=== PATIENT | female | born 1955 | race Caucasian/White ===

== ENCOUNTER 2017-04-22 15:42 | Emergency (ER) | payer OTHER ==
--- NOTE | 2017-04-22 19:47 | ED ORDER SUMMARY ---
..... Patient: HARJINDER DASILVA OrderSheet [facility] VisitID: [id number] [place] [address] 61y, F Registration Date/Time: 04/22/2017 ORDER SHEET Weight: 52.1 kg (stated) Allergies: Erythromycin GENERAL ORDERS: CBC w Diff Urgent (15:59 04/22/2017 Blaine Arshad) (Ack 16:02 RAMAeivan ER Tech1) (16:09 LAbe R.N.) CMP Urgent (15:59 04/22/2017 Blaine Arshad) (Ack 16:02 PWeivan ER Tech1) (16:09 LAbe R.N.) UA-Culture if indicated Urgent (15:59 04/22/2017 Blaine Arshad) (Ack 16:02 RAMAeivan ER Tech1) (16:09 LAbe R.N.) Urine Drug Screen Urgent (15:59 04/22/2017 Blaine Arshad) (Ack 16:02 RAMAeiler ER Tech1) (16:09 LAbe R.N.) Breathalyzer (15:59 04/22/2017 Blaine Arshad) (16:09 LAbe R.N.) Magnesium Urgent (16:32 04/22/2017 Blaine Arshad) (16:37 RAMAeivan ER Tech1) - (Magnesium Oxide 400 mg PO x 1 now) (16:43 04/22/2017 Blaine Arshad) (Cancelled: Physician Order16:54 Blaine Arshad) MEDICATION ORDERS: Potassium Chloride PO 20 meq (NOW) (16:44 04/22/2017 Blaine Arshad) (Ack 16:58 LAbe R.N.) (17:10 LAbe R.N.) - (Magnesium Oxide 400 mg PO x 1 now) (16:54 04/22/2017 Blaine Arshad) (Ack 16:58 LAbe R.N.) (18:38 LAbe R.N.) Ativan PO 0.5 mg (HIGH ALERT MEDICATION, NOW) (19:42 04/22/2017 Blaine Arshad) (Ack 19:43 JQuivey R.N.) (19:46 JQuivey R.N.) Zofran ODT PO 4 mg (NOW) (19:53 04/22/2017 Ellen Limon verbal order read back to Blaine Arshad) (19:53 Ellen Limon) IV FLUIDS: IV NS : initial bolus none -, then 1000 mL/hr for X1 (NOW) (15:58 04/22/2017 Blaine Arshad) (16:10 Jeffrey Gonzalez.) Zofran IV 4 mg (NOW) (15:58 04/22/2017 Blaine Arshad) (16:10 Jeffrey Garcia.N.) Potassium Chloride IV 20 meq/100mL (HIGH ALERT MEDICATION, NOW, Run no faster than 10 mEq/hr) (16:44 04/22/2017 Blaine Arshad) (Ack 16:58 LAbjohn R.N.) (17:08 LAbjohn R.N.) ORDER SHEET NOTES: [Electronically signed by Josselin Connors R.N. (20:49 04/22/2017)] [Electronically signed by Thompson Grace Dr. (21:56 04/22/2017)] [Electronically locked/signed by Josselin Connors R.N. (20:49 04/22/2017)]
--- NOTE | 2017-04-22 19:47 | ED ORDER SUMMARY ---
..... Patient: HARJINDER DASILVA OrderSheet [facility] VisitID: [id number] [place] [address] 61y, F Registration Date/Time: 04/22/2017 ORDER SHEET Weight: 52.1 kg (stated) Allergies: Erythromycin GENERAL ORDERS: CBC w Diff Urgent (15:59 04/22/2017 Blaine Arshad) (Ack 16:02 RAMAeivan ER Tech1) (16:09 LAbe R.N.) CMP Urgent (15:59 04/22/2017 Blaine Arshad) (Ack 16:02 PWeivan ER Tech1) (16:09 LAbe R.N.) UA-Culture if indicated Urgent (15:59 04/22/2017 Blaine Arshad) (Ack 16:02 RAMAeivan ER Tech1) (16:09 LAbe R.N.) Urine Drug Screen Urgent (15:59 04/22/2017 Blaine Arshad) (Ack 16:02 RAMAeiler ER Tech1) (16:09 LAbe R.N.) Breathalyzer (15:59 04/22/2017 Blaine Arshad) (16:09 LAbe R.N.) Magnesium Urgent (16:32 04/22/2017 Blaine Arshad) (16:37 RAMAeivan ER Tech1) - (Magnesium Oxide 400 mg PO x 1 now) (16:43 04/22/2017 Blaine Arshad) (Cancelled: Physician Order16:54 Blaine Arshad) MEDICATION ORDERS: Potassium Chloride PO 20 meq (NOW) (16:44 04/22/2017 Blaine Arshad) (Ack 16:58 LAbe R.N.) (17:10 LAbe R.N.) - (Magnesium Oxide 400 mg PO x 1 now) (16:54 04/22/2017 Blaine Arshad) (Ack 16:58 LAbe R.N.) (18:38 LAbe R.N.) Ativan PO 0.5 mg (HIGH ALERT MEDICATION, NOW) (19:42 04/22/2017 Blaine Arshad) (Ack 19:43 JQuivey R.N.) (19:46 JQuivey R.N.) Zofran ODT PO 4 mg (NOW) (19:53 04/22/2017 Ellen Limon verbal order read back to Blaine Arshad) (19:53 Ellen Limon) IV FLUIDS: IV NS : initial bolus none -, then 1000 mL/hr for X1 (NOW) (15:58 04/22/2017 Blaine Arshad) (16:10 Jeffrey Gonzalez.) Zofran IV 4 mg (NOW) (15:58 04/22/2017 Blaine Arshad) (16:10 eJffrey Garcia.N.) Potassium Chloride IV 20 meq/100mL (HIGH ALERT MEDICATION, NOW, Run no faster than 10 mEq/hr) (16:44 04/22/2017 Blaine Arshad) (Ack 16:58 LAbjohn R.N.) (17:08 LAbjohn R.N.) ORDER SHEET NOTES: [Electronically signed by Josselin Connors R.N. (20:49 04/22/2017)] [Electronically signed by Thompson Grace Dr. (21:56 04/22/2017)] [Electronically locked/signed by Josselin Connors R.N. (20:49 04/22/2017)]
--- NOTE | 2017-04-22 19:47 | ED CLINICAL REPORT ---
Clinical Report - Physicians/Mid Levels [facility] [address] [place] [address] 04/22/2017 15:45 Patient: HARJINDER DASILVA Time Seen: 15:49; initial patient contact. Arrived- By ambulance. Historian- patient. HISTORY OF PRESENT ILLNESS Chief Complaint: INTOXICATED. Wants to stop drinking. Symptoms started today. Substances abused: Alcohol. Last drink just prior to arrival. The patient has had nausea. No vomiting, diarrhea, abdominal pain, tremors or seizure. No agitation, delusions, hallucinations or suicidal thoughts. Not confused or paranoid. Has not been depressed. The symptoms are described as mild. No injuries noted. Similar symptoms previously: Many times. ( Reviewed [place] report, multiple ER visits for EtOH.). Recent medical care: Not recently seen/assessed. REVIEW OF SYSTEMS No headache, dizziness, chest pain or palpitations. All systems otherwise negative, except as recorded above. PAST HISTORY Hypothyroidism. Alcoholism ADDITIONAL SURGERIES: . Knee Surgery. Shoulder Surgery. SOCIAL HISTORY Current every day smoker. Heavy alcohol use. Patient is a longstanding alcoholic. No drug use. ADDITIONAL NOTES The nursing notes have been reviewed. PHYSICAL EXAM Vital Signs: 04/22/2017 15:55 BP: 156/91. HR: 92. RR: 18. O2 saturation: 97%. Temp: 98.5 F. Have been reviewed. Hypertensive. Heart rate normal. Respiratory rate normal. Temperature normal. Oxygen saturation normal. Appearance: Alert. Oriented X3. No acute distress. Odor of alcohol is present. Head: Head atraumatic. ENT: Moist mucous membranes. CVS: Normal heart rate and rhythm. Heart sounds normal. Respiratory: No respiratory distress. Breath sounds normal. Abdomen: Soft and nontender. No organomegaly. Skin: Skin warm and dry. Normal skin color. No rash. Extremities: No lower extremity edema. Neuro: Alert. Oriented X 3. Mood/affect normal. Speech normal. LABS, X-RAYS, AND EKG Laboratory Tests: UA-Culture if indicated: (SEGUNDO: 04/22/2017 15:53) ( MsgRcvd 04/22/2017 16:39) Final results Test Result Flag Units (Reference) URINE COLOR STRAW URINE APPEARANCE CLEAR URINE GLUCOSE NEGATIVE (NEGATIVE) URINE BILIRUBIN NEGATIVE (NEGATIVE) URINE KETONE NEGATIVE (NEGATIVE) URINE SPECIFIC GRAVITY <= 1.005 L (1.010-1.030) URINE PH 6.0 (5.0-8.0) URINE PROTEIN NEGATIVE (NEGATIVE) URINE UROBILINOGEN 0.2 EU/dL (0.2-1.0) URINE NITRITE NEGATIVE (NEGATIVE) URINE BLOOD 3+ (NEGATIVE) URINE LEUK ESTERASE NEGATIVE (NEGATIVE) URINE RBC 0-1 rbc/hpf (0-1) URINE WBC RARE wbc/hpf (0-1) URINE EPITHELIAL CELLS RARE EPI/hpf (0-5) URINE BACTERIA TRACE (<1+) (NONE SEEN) URINE COMMENT CULT NOT INDICATED URINE CULTURES ARE SET-UP BASED ON THE FOLLOWING CRITERIA:POSITIVE NITRITEPOSITIVE LEUKOCYTE ESTERASEGREATER THAN 10 WHITE BLOOD CELLSMODERATE (2+) OR GREATER BACTERIA CBC w Diff: (SEGUNDO: 04/22/2017 15:53) ( [facility] 04/[facility] 16:31) Final results Test Result Flag Units (Reference) WHITE BLOOD COUNT 10.3 K/uL (4.5-11.5) RED BLOOD COUNT 3.58 L M/uL (4.00-5.20) HEMOGLOBIN 11.6 L gm/dL (12.0-16.0) HEMATOCRIT 33.5 L % (36.0-46.0) MEAN CELL VOLUME 94 fL (80-100) MEAN CORPUSCULAR HGB 32 pg (26-34) MEAN CORPUSCULAR HGB CONC 35 g/dL (31-37) RED CELL DISTRIBUTION WIDTH 13.5 % (11.6-14.8) PLATELET COUNT 158 K/uL (150-400) NEUTROPHIL % 86.3 H % (50-75) LYMPH % 8.4 L % (25-40) MONO % 5.1 % (3-14) EOSINOPHIL % 0.1 % (0-4) BASOPHIL % 0.1 % (0-2) Urine Drug Screen: (SEGUNDO: 04/22/2017 15:53) ( [facility] 04/22/2017 16:27) Final results Test Result Flag Units (Reference) AMPHETAMINE/METHAMPHETAMINE NEGATIVE (NEGATIVE) BARBITURATE NEGATIVE (NEGATIVE) BENZODIAZEPINE NEGATIVE (NEGATIVE) CANNABINOID NEGATIVE (NEGATIVE) COCAINE NEGATIVE (NEGATIVE) ECSTASY NEGATIVE (NEGATIVE) METHADONE NEGATIVE (NEGATIVE) OPIATE NEGATIVE (NEGATIVE) The urine drug screen is a qualitative screening test fordrug overdose and abuse. All screen results should beconsidered as presumptive.Drugs screened for are as follows:BenzodiazepinesCocaineAmphetamines/MetamphetaminesTHC (Tetrahydrocannabinol)OpiatesBarbituratesEcstasyMethadonePositive results are unconfirmed. For confirmation, notifythe lab for the specimen to be sent to the reference lab.All confirmations must be performed by a differentmethodology.The ingestion of natural herbal and plant productscontaining Ephedra/Ephedra metabolites can produce in urineone or more substances capable of cross reacting withamphetamine/methamphetamine immunoassays. These testsprovide a preliminary result only. A more specificalternative chemical method must be used to obtain aconfirmed analytical result. CMP: (SEGUNDO: 04/22/2017 15:53) ( MsgRcvd 04/22/2017 16:31) Final results Test Result Flag Units (Reference) GLUCOSE 136 H mg/dL (70-110) BUN 8 mg/dL (7-18) CREATININE 0.7 mg/dL (0.6-1.3) Estimated GFR >60 mL/min Estimated GFR- >60 mL/min Note: Persistent reduction over 3 months in eGFR<60 mL/min/1.73 m2 defines CKD. Patients with eGFR values>=60 mL/min/1.73 m2 may also have CKD if evidence ofpersistent proteinuria. Additional information may be foundat www.kidney.org. SODIUM 135 L mmol/L (136-145) POTASSIUM 2.8 *L mmol/L (3.5-5.1) CRITICAL RESULTS CALLEDCalled to Ashly HEATON 04/22/17 1630Were 2 patient identifiers used? YWas the result read back? Y CHLORIDE 96 L mmol/L (98-107) CARBON DIOXIDE 22 mmol/L (21-32) CALCIUM 8.6 mg/dL (8.5-10.1) TOTAL PROTEIN 7.4 g/dL (6.4-8.2) ALBUMIN 3.7 g/dL (3.3-5.0) BILIRUBIN, TOTAL 1.4 H mg/dL (0.0-1.0) ALKALINE PHOSPHATASE 69 U/L (46-116) AST (SGOT) 44 H U/L (15-37) ALT (SGPT) 27 U/L (12-78) MAGNESIUM 1.2 L mg/dL (1.8-2.4) . PROGRESS AND PROCEDURES Disposition: Discharged home in good and improved condition. Condition: good. CLINICAL IMPRESSION Uncomplicated alcohol intoxication with alcohol dependence. Hypokalemia Mild hypomagnesemia. INSTRUCTIONS Your Current Medications: CONTINUE TAKING THE FOLLOWING MEDICATIONS: Levothyroxine Sodium Oral : Tablet 125 mcg, 1 tablet daily. Prescription Medications: Chlordiazepoxide 25 mg: take 1-2 orally every 6 hours as needed for anxiety. Dispense thirty (30). No refill. Potassium Chloride 20 mEq: take 1 orally every 24 hours - Dispense fifteen (15) No refills. OTC Medications: Mag-Ox 400 (available over the counter): take 1 orally daily Dispense fifteen (15). No refills. Follow-up: Follow up with your doctor in about two days. Call for an appointment. Screening today revealed the patient's blood pressure to be in the hypertensive range. The patient should follow up with a primary care provider for blood pressure management. (Electronically signed by Thompson Grace Dr. 04/22/2017 21:56)
--- NOTE | 2017-04-22 19:47 | ED NURSING NOTES ---
Clinical Report - Nurses [facility] [address] [place] [address] 04/22/2017 15:45 Patient: HARJINDER DASILVA TRIAGE Triage time 1539. Chief Complaint: (ETOH Withdrawal). --15:48 Josselin Connors R.N. Acuity: LEVEL 3. Alert. No acute distress. SEPSIS SCREEN: Sepsis Screen. Negative (no infection suspected/documented). GABRIELLE COMA SCORE: [place] Coma Scale: 15- eyes open spontaneously (4); best verbal response- oriented x 4 (5); best motor response- obeys commands (6). --16:07 Josselin Connors R.N. 15:55 04/22/17. BP: 156/91. HR: 92. RR: 18. O2 saturation: 97%. Temp: 98.5 F. Pain level now 10. --16:07 Josselin Connors R.N. Weight: 52.1 kg stated. Height/Length: 62 inches Per Patient. BMI: 21. --15:47 Josselin Connors R.N. Medications Levothyroxine Sodium Oral (Tablet 125 mcg) 1 tablet, daily. --15:48 Josselin Connors R.N. Allergies Erythromycin. --15:47 Josselin Connors R.N. Medication/allergy information source: the patient. --16:07 Josselin Connors R.N. History Historian: patient. Primary physician (Christy Nino). ( had 5 beers today, wants to detox and go into treatment). --15:48 Josselin Connors R.N. Arrived by EMS. Historian: patient. Primary physician (Christy Nino). Treatment HYDRAULIC TECHNICIAN: EMS treatment HYDRAULIC TECHNICIAN verbally communicated. See EMS report. PAST MEDICAL HX: Immunizations: status is unknown. SOCIAL HX: Current every day light tobacco smoker. Alcohol use; consumes five beers a day. No drug use. No infectious disease exposure. ABUSE ASSESSMENT: No report of abuse. SELF HARM ASSESSMENT: A self harm assessment was performed. The patient answered "no" to the question "Do you have thoughts of harming or killing yourself?" and "Are you here because you tried to hurt yourself?". FALL RISK ASSESSMENT: Fall risk assessment completed. No fall risk identified. NUTRITIONAL RISK ASSESSMENT: The nutritional risk assessment revealed no deficiencies. FUNCTIONAL ASSESSMENT: Functional assessment: no impairments noted. LEARNING NEEDS ASSESSMENT: The learning needs assessment revealed no barriers. SKIN INTEGRITY ASSESSMENT: Skin integrity risk assessment completed. No skin integrity risk identified. --16:07 Josselin Connors R.N. PROBLEMS: Hypothyroidism. --15:55 Josselin Connors R.N. ADDITIONAL SURGERIES: . Knee Surgery. Shoulder Surgery. --15:55 Josselin Connors R.N. Interventions ID band on patient. To treatment room. --16:07 Josselin Connors R.N. PHYSICAL ASSESSMENT GENERAL / NEURO / PSYCH: Alert. Oriented X 4. Appears in no acute distress. RESPIRATORY: Respirations not labored. Chest nontender. Breath sounds within normal limits. CVS: Normal sinus rhythm noted. Capillary refill less than 2 seconds. Pulses within normal limits. GI / : ( mild nausea). Abdomen soft. SKIN: Skin intact. Skin is warm and dry. --16:07 Josselin Connors R.N. NURSING PROGRESS NOTES 16:07 04/22/17. BP: 163/85. HR: 90. RR: 15. O2 saturation: 98%. Pain level now 7/10. --16:09 Josselin Connors R.N. Cardiac rhythm: normal sinus rhythm; unifocal PVCs. Monitoring of patient in place. Patient gowned. Head of bed elevated. Reassurance given. Two patient identifiers checked. Call light placed in reach. Side rails up x 2. Bed placed in lowest position. Brakes of bed on. Patient ready for evaluation- chart flagged. ED physician notified. --16:09 Josselin Connors R.N. 15:55 04/22/2017 Site #1 started via IV in the right hand with an 20g angiocath, with aseptic technique and good blood return; one attempt. Blood drawn: rainbow set. Saline lock flushed with 5 mL saline (placed by Pam MENDEZ). --16:10 Josselin Connors R.N. 16:10 04/22/2017 Started bag #1 1000 mL IV Fluids IV NS (Saline); at 999 mL/hr over 1 hour(s) via site #1 via IV pump. Allergies verified and confirmed 5 rights. IV patency established. IV site checked: no pain, redness, or swelling. IV flushed thoroughly pre- and post-medication administration. --16:10 Josselin Connors R.N. 16:10 04/22/2017 Zofran (Ondansetron HCl) IVP 4 mg given. via site #1. Allergies verified and confirmed 5 rights. IV patency established. IV site checked: no pain, redness, or swelling. IV flushed thoroughly pre- and post-medication administration. --16:10 Josselin Connors R.N. ( breathilizer-.156). --16:26 Angelina Farr, Tech 17:08 04/22/2017 Started 20 meq of Potassium Chloride (Potassium Chloride) IVPB in bag #1 100 mL; at 50 mL/hr over 2 hour(s) via site #1 via IV pump. Allergies verified and confirmed 5 rights. IV patency established. IV site checked: no pain, redness, or swelling. IV flushed thoroughly pre- and post-medication administration. --17:08 Josselin Connors R.N. 17:10 04/22/2017 Potassium Chloride (Potassium Chloride ER) PO 20 meq given. Allergies verified and confirmed 5 rights. --17:10 Josselin Connors R.N. 17:00 04/22/17. BP: 131/89. HR: 87. RR: 15. O2 saturation: 95%. Pain level now: 03/22. --17:39 Josselin Connors R.N. Reassessment after fluids administered. She is sleeping. ( awakened patient. Requests meal tray. Escorted patient to bathroom). --17:39 Josselin Connors R.N. 18:10 04/22/17. Reassessment after fluids administered and medication administered. She is calm. Overall patient status is improved- she states feels better (assisted up to BR). RESPIRATORY: No respiratory distress. SKIN: Skin is warm and dry. --18:10 Sheila Purdy R.N. 18:09 04/22/17. BP: 142/76. HR: 110. RR: 16. --18:10 Sheila Purdy R.N. 18:15 assisted back to bed. --18:15 Sheila Purdy R.N. 17:10 04/22/2017 magnesium oxide * PO 400 mg --18:38 Josselin Connors R.N. 19:24 04/22/2017 Potassium Chloride IVPB Discontinued: bag #1 infused upon admission. Total amount infused: 100 mL. IV patency established. IV site checked: no pain, redness, or swelling. IV flushed thoroughly. --19:24 Josselin Connors R.N. 19:46 04/22/2017 Ativan (LORazepam) PO 0.5 mg given. Allergies verified, confirmed 5 rights and sedative warning given to the patient. --19:46 Sandor Leija R.N. 19:53 04/22/2017 Zofran ODT (Ondansetron) PO 4 mg given. Allergies verified and confirmed 5 rights. --19:53 Sandor Leija R.N. 19:53 04/22/2017 IV Fluids IV NS Discontinued: bag #1 infused upon discharge. Total amount infused: 1000 mL. --19:53 Sandor Leija R.N. DISPOSITION / DISCHARGE 19:56 04/22/2017 Site #1 removed upon discharge. Catheter intact. Bandage applied. --19:56 Sandor Leija R.N. Departure time: 19:59. Condition at departure: stable. No learning barriers present. Discharge instructions provided and reviewed with the patient. Reviewed medication(s) side effects, precautions, dosing and course information. Prescription(s) given to the patient. Patient verbalized understanding. Written instructions provided in [place]ian. The patient was discharged home and unaccompanied at time of discharge. She left the Emergency Department ambulatory. FALL RISK ASSESSMENT: Fall risk assessment completed. No fall risk identified. --20:00 Sandor Leija R.N. 19:54 04/22/17. BP: 146/95. HR: 96. RR: 15. O2 saturation: 98% on room air. --20:00 Sandor Leija R.N. Locked/Released at 04/22/2017 20:49 by Josselin Connors R.N.
--- NOTE | 2017-04-22 21:56 | ED MED RECONCILIATION SUMMARY ---
Patient: HARJINDER DASILVA Medication Reconciliation Report [facility] VisitID: [id number] [address] [place] [address] 61y, F Registration Date/Time: 04/22/2017 Weight: 52.1 kg Height/Length: 62 in. BMI: 21.0 ALLERGIES: Erythromycin The patient's Home Medications are listed below: CONTINUE TAKING THE FOLLOWING MEDICATIONS: Levothyroxine Sodium Oral (125 mcg) 1 tablet, daily The source(s) of the original Home Medication information: patient The following Medications were given to the patient in the Emergency Department: IV NS IV Fluids bolus 0, then 999 mL/hr, administered: 04/22/2017 4:10:00 PM Zofran [IVP] IVP 4 mg, administered: 04/22/2017 4:10:00 PM Potassium Chloride [IVPB] IVPB bolus 0, then 20 meq 50 mL/hr, administered: 04/22/2017 5:08:00 PM Potassium Chloride [PO] PO 20 meq, administered: 04/22/2017 5:10:00 PM magnesium oxide PO 400 mg, administered: 04/22/2017 5:10:00 PM Ativan [PO] PO 0.5 mg, administered: 04/22/2017 7:46:00 PM Zofran ODT [PO] PO 4 mg, administered: 04/22/2017 7:53:00 PM The following Medications were prescribed to the patient: Mag-Ox 400 (available over the counter): take 1 orally daily Dispense fifteen (15). No refills. -- Thompson Grace Dr. Chlordiazepoxide 25 mg: take 1-2 orally every 6 hours as needed for anxiety. Dispense thirty (30). No refill. -- Thompson Grace Dr. Potassium Chloride 20 mEq: take 1 orally every 24 hours - Dispense fifteen (15) No refills. -- Thompson Grace Dr.
--- NOTE | 2017-04-22 21:56 | ED DISCHARGE INSTRUCTIONS ---
Patient: HARJINDER DASILVA General Instructions [facility] VisitID: [id number] [place] [address] 61y, F Registration Date/Time: 04/22/2017 Uncomplicated alcohol intoxication with alcohol dependence. Hypokalemia Mild hypomagnesemia. INSTRUCTIONS Your Current Medications: CONTINUE TAKING THE FOLLOWING MEDICATIONS: Levothyroxine Sodium Oral : Tablet 125 mcg, 1 tablet daily. Prescription Medications: Chlordiazepoxide 25 mg: take 1-2 orally every 6 hours as needed for anxiety. Dispense thirty (30). No refill. Potassium Chloride 20 mEq: take 1 orally every 24 hours - Dispense fifteen (15) No refills. OTC Medications: Mag-Ox 400 (available over the counter): take 1 orally daily Dispense fifteen (15). No refills. Follow-up: Follow up with your doctor in about two days. Call for an appointment. Screening today revealed the patient's blood pressure to be in the hypertensive range. The patient should follow up with a primary care provider for blood pressure management. ADDITIONAL INFORMATION Alcohol Intoxication Alcohol intoxication occurs when you drink alcohol faster than your liver can remove it from your system. Alcohol intoxication affects your judgment and coordination. Very high blood alcohol levels can cause coma, very slow breathing and even . If you drink alcohol every day, this may gradually cause permanent damage to your liver, brain, heart, pancreas and other organs. Alcohol use during may cause permanent damage to the growing baby. Home Care: Do not drink any more alcohol. DO NOT DRIVE until all effects of the alcohol have worn off. Get lots of rest over the next few days. Drink plenty of water and other non-alcoholic liquids. Try to eat regular meals. If you have been drinking heavily on a daily basis, you may go through alcohol withdrawl. This is also called the shakes or DTs. The usual symptoms last 3 to 4 days and may include nervousness, shakiness, nausea, sweating or sleeplessness. During this time, it is best that you stay with family or friends who can help and support you. You can also admit yourself to a residential detox program. If your symptoms are severe, contact your doctor for medicines to help. Follow Up: If alcohol is causing a problem in your life, these and other organizations can help you: Alcoholics Anonymous offers support through a self-help fellowship. There are no dues or fees. See the Yellow Pages and call for time and place of meetings. www.aa.org [employer]da offers support to families of alcohol users. 844.756.5703 www.brenda.org National [place] On Alcoholism And Drug Dependence 087-027-6176 www.ncadd.org There are also inpatient or residential alcohol detox programs. Check the Internet or phonebook Yellow Pages under Drug Abuse & Treatment Centers. Get Prompt Medical Attention if any of the following occur: there) Hypokalemia Hypokalemia means a low level of potassium in the blood. This most often occurs in patients who take diuretics (water pills). It can also occur due to severe vomiting or diarrhea. A mild case usually causes no symptoms. It is only found with blood testing. More severe potassium loss causes generalized weakness, muscle or abdominal cramping, heart palpitations (rapid or irregular heartbeats) and low blood pressure. Home Care: 1) Take any potassium supplements prescribed. 2) Eat foods rich in potassium. The highest amount is found in artichoke, baked potatoes, spinach, cantaloupe, honeydew melon, cod, halibut, salmon, and scallops. White, red, or ramon beans are also very good sources. A modest amount is found in orange juice, bananas, carrots, and tomato juice. 3) Certain types of diuretics (water pills), such as Lasix (furosemide), require that you take potassium supplements for as long as you take the diuretic pills. If you are taking a diuretic, discuss the need for potassium supplements with your doctor. Follow Up with your doctor for a repeat blood test within the next week or as advised by our staff. Get Prompt Medical Attention if any of the following occur: -- Increased weakness -- Feeling dizzy -- Irregular heartbeat, extra beats or very fast heart rate -- Fainting spell Chlordiazepoxide Hydrochloride Oral capsule What is this medicine? CHLORDIAZEPOXIDE (klor dye az e POX shanna) is a benzodiazepine. It is used to treat anxiety and alcohol withdrawal. How should I use this medicine? Take this medicine by mouth with a glass of water. Follow the directions on the prescription label. If this medicine upsets your stomach, take it with food or milk. Take your doses at regular intervals. Do not take your medicine more often than directed. If you have been taking this medicine regularly for some time, do not suddenly stop taking it. You must gradually reduce the dose or you may get severe side effects. Ask your doctor or health career services officer for advice. Even after you stop taking this medicine it can still affect your body for several days. Talk to your master ship regarding the use of this medicine in children. Special care may be needed. While this drug may be prescribed for children as young as 6 years for selected conditions, precautions do apply. What side effects may I notice from receiving this medicine? Side effects that you should report to your doctor or health career services officer as soon as possible: allergic reactions like skin rash, itching or hives, swelling of the face, lips, or tongue confusion, depression feeling faint or lightheaded, falls mood changes, excitability or aggressive behavior muscle cramps problems with balance, talking, walking restlessness tremors unusually weak or tired Side effects that usually do not require medical attention (report to your doctor or health career services officer if they continue or are bothersome): change in sex drive or performance constipation drowsiness menstrual changes nausea, vomiting What may interact with this medicine? cimetidine medicines for anxiety or sleeping problems, like alprazolam, lorazepam, or triazolam medicines for depression, mental problems or psychiatric disturbances medicines for HIV infection or AIDS prescription pain medicines rifampin, rifapentine, or rifabutin some medicines for seizures like carbamazepine, phenobarbital, phenytoin, or primidone What if I miss a dose? If you miss a dose, take it as soon as you can. If it is almost time for your next dose, take only that dose. Do not take double or extra doses. Where should I keep my medicine? Keep out of the reach of children. This medicine can be abused. Keep your medicine in a safe place to protect it from theft. Do not share this medicine with anyone. Selling or giving away this medicine is dangerous and against the law. Store at room temperature between 15 and 30 degrees C (59 and 86 degrees F). Throw away any unused medicine after the expiration date. What should I tell my health care provider before I take this medicine? They need to know if you have any of these conditions: an alcohol or drug abuse problem kidney or liver disease suicidal thoughts an unusual or allergic reaction to chlordiazepoxide, other benzodiazepines, foods, dyes, or preservatives or trying to get breast-feeding What should I watch for while using this medicine? Visit your doctor or health career services officer for regular checks on your progress. Your body can become dependent on this medicine. Ask your doctor or health career services officer if you still need to take it. You may get drowsy or dizzy. Do not drive, use machinery, or do anything that needs mental alertness until you know how this medicine affects you. To reduce the risk of dizzy and fainting spells, do not stand or sit up quickly, especially if you are an older patient. Alcohol may increase dizziness and drowsiness. Avoid alcoholic drinks. Do not treat yourself for coughs, colds or allergies without asking your doctor or health career services officer for advice. Some ingredients can increase possible side effects. You have been given the following additional information: Alcohol Intoxication Hypokalemia Chlordiazepoxide Hydrochloride Oral capsule (Electronically signed by Thompson Grace Dr. 04/22/2017 21:56)
--- NOTE | 2017-04-22 21:56 | ED MAR SUMMARY ---
..... Medication Administration Record [facility] [address] [place] [address] Patient: HARJINDER DASILVA Visit ID: [id number] 61y, F Weight: 52.1 kg Height/Length: 62 in BMI: 21 ALLERGIES: Erythromycin Start 16:04/22/2017 Josselni Connors R.N., Stop 19:53 04/22/2017 Sandor Leija R.N. Medication Administered: IV NS (SALINE), Dose: IV Fluids over 1 hour(s), Rate: 999 mL/hr, Dispensed: 1000 mL bag, Site: #1 right hand. Medication Ordered: IV NS : initial bolus none -, then 1000 mL/hr for X1 (NOW). Given 16:04/22/2017 Josselin Connors R.N. Medication Administered: ZOFRAN [IVP] (ONDANSETRON HCL), Dose: 4 mg IVP, Site: #1 right hand. Medication Ordered: Zofran IV 4 mg (NOW). Start 17:08 04/22/2017 Josselin Connors R.N., Stop 19:24 04/22/2017 Josselin Connors R.N. Medication Administered: POTASSIUM CHLORIDE [IVPB] (POTASSIUM CHLORIDE), Dose: 20 meq IVPB over 2 hour(s), Rate: 50 mL/hr, Dispensed: 100 mL bag, Site: #1 right hand. Medication Ordered: Potassium Chloride IV 20 meq/100mL (HIGH ALERT MEDICATION, NOW, Run no faster than 10 mEq/hr). Given 17:04/22/2017 Josselin Connors R.N. Medication Administered: POTASSIUM CHLORIDE [PO] (POTASSIUM CHLORIDE ER), Dose: 20 meq PO. Medication Ordered: Potassium Chloride PO 20 meq (NOW). Given 17:04/22/2017 Josselin Connors R.N. Medication Administered: magnesium oxide *, Dose: 400 mg * PO. Medication Ordered: - (Magnesium Oxide 400 mg PO x 1 now). Given 19:46 04/22/2017 Sandor Leija R.N. Medication Administered: ATIVAN [PO] (LORAZEPAM), Dose: 0.5 mg PO. Medication Ordered: Ativan PO 0.5 mg (HIGH ALERT MEDICATION, NOW). Given 19:53 04/22/2017 Sandor Leija R.N. Medication Administered: ZOFRAN ODT [PO] (ONDANSETRON), Dose: 4 mg PO. Medication Ordered: Zofran ODT PO 4 mg (NOW).
--- NOTE | 2017-04-22 21:56 | ED MAR SUMMARY ---
..... Medication Administration Record [facility] [address] [place] [address] Patient: HARJINDER DASILVA Visit ID: [id number] 61y, F Weight: 52.1 kg Height/Length: 62 in BMI: 21 ALLERGIES: Erythromycin Start 16:04/22/2017 Josselin Connors R.N., Stop 19:53 04/22/2017 Sandor Leija R.N. Medication Administered: IV NS (SALINE), Dose: IV Fluids over 1 hour(s), Rate: 999 mL/hr, Dispensed: 1000 mL bag, Site: #1 right hand. Medication Ordered: IV NS : initial bolus none -, then 1000 mL/hr for X1 (NOW). Given 16:04/22/2017 Josselin Connors R.N. Medication Administered: ZOFRAN [IVP] (ONDANSETRON HCL), Dose: 4 mg IVP, Site: #1 right hand. Medication Ordered: Zofran IV 4 mg (NOW). Start 17:08 04/22/2017 Josselin Connors R.N., Stop 19:24 04/22/2017 Josselin Connors R.N. Medication Administered: POTASSIUM CHLORIDE [IVPB] (POTASSIUM CHLORIDE), Dose: 20 meq IVPB over 2 hour(s), Rate: 50 mL/hr, Dispensed: 100 mL bag, Site: #1 right hand. Medication Ordered: Potassium Chloride IV 20 meq/100mL (HIGH ALERT MEDICATION, NOW, Run no faster than 10 mEq/hr). Given 17:04/22/2017 Josselin Connors R.N. Medication Administered: POTASSIUM CHLORIDE [PO] (POTASSIUM CHLORIDE ER), Dose: 20 meq PO. Medication Ordered: Potassium Chloride PO 20 meq (NOW). Given 17:04/22/2017 Josselin Connors R.N. Medication Administered: magnesium oxide *, Dose: 400 mg * PO. Medication Ordered: - (Magnesium Oxide 400 mg PO x 1 now). Given 19:46 04/22/2017 Sandor Leija R.N. Medication Administered: ATIVAN [PO] (LORAZEPAM), Dose: 0.5 mg PO. Medication Ordered: Ativan PO 0.5 mg (HIGH ALERT MEDICATION, NOW). Given 19:53 04/22/2017 Sandor Leija R.N. Medication Administered: ZOFRAN ODT [PO] (ONDANSETRON), Dose: 4 mg PO. Medication Ordered: Zofran ODT PO 4 mg (NOW).
--- NOTE | 2017-04-22 21:56 | ED DISCHARGE INSTRUCTIONS ---
Patient: HARJINDER DASILVA General Instructions [facility] VisitID: [id number] [place] [address] 61y, F Registration Date/Time: 04/22/2017 Uncomplicated alcohol intoxication with alcohol dependence. Hypokalemia Mild hypomagnesemia. INSTRUCTIONS Your Current Medications: CONTINUE TAKING THE FOLLOWING MEDICATIONS: Levothyroxine Sodium Oral : Tablet 125 mcg, 1 tablet daily. Prescription Medications: Chlordiazepoxide 25 mg: take 1-2 orally every 6 hours as needed for anxiety. Dispense thirty (30). No refill. Potassium Chloride 20 mEq: take 1 orally every 24 hours - Dispense fifteen (15) No refills. OTC Medications: Mag-Ox 400 (available over the counter): take 1 orally daily Dispense fifteen (15). No refills. Follow-up: Follow up with your doctor in about two days. Call for an appointment. Screening today revealed the patient's blood pressure to be in the hypertensive range. The patient should follow up with a primary care provider for blood pressure management. ADDITIONAL INFORMATION Alcohol Intoxication Alcohol intoxication occurs when you drink alcohol faster than your liver can remove it from your system. Alcohol intoxication affects your judgment and coordination. Very high blood alcohol levels can cause coma, very slow breathing and even . If you drink alcohol every day, this may gradually cause permanent damage to your liver, brain, heart, pancreas and other organs. Alcohol use during may cause permanent damage to the growing baby. Home Care: Do not drink any more alcohol. DO NOT DRIVE until all effects of the alcohol have worn off. Get lots of rest over the next few days. Drink plenty of water and other non-alcoholic liquids. Try to eat regular meals. If you have been drinking heavily on a daily basis, you may go through alcohol withdrawl. This is also called the shakes or DTs. The usual symptoms last 3 to 4 days and may include nervousness, shakiness, nausea, sweating or sleeplessness. During this time, it is best that you stay with family or friends who can help and support you. You can also admit yourself to a residential detox program. If your symptoms are severe, contact your doctor for medicines to help. Follow Up: If alcohol is causing a problem in your life, these and other organizations can help you: Alcoholics Anonymous offers support through a self-help fellowship. There are no dues or fees. See the Yellow Pages and call for time and place of meetings. www.aa.org [facility] offers support to families of alcohol users. [phone] www.brenda.org National [place] On Alcoholism And Drug Dependence [phone] www.ncadd.org There are also inpatient or residential alcohol detox programs. Check the Internet or phonebook Yellow Pages under Drug Abuse & Treatment Centers. Get Prompt Medical Attention if any of the following occur: there) Hypokalemia Hypokalemia means a low level of potassium in the blood. This most often occurs in patients who take diuretics (water pills). It can also occur due to severe vomiting or diarrhea. A mild case usually causes no symptoms. It is only found with blood testing. More severe potassium loss causes generalized weakness, muscle or abdominal cramping, heart palpitations (rapid or irregular heartbeats) and low blood pressure. Home Care: 1) Take any potassium supplements prescribed. 2) Eat foods rich in potassium. The highest amount is found in artichoke, baked potatoes, spinach, cantaloupe, honeydew melon, cod, halibut, salmon, and scallops. White, red, or ramon beans are also very good sources. A modest amount is found in orange juice, bananas, carrots, and tomato juice. 3) Certain types of diuretics (water pills), such as Lasix (furosemide), require that you take potassium supplements for as long as you take the diuretic pills. If you are taking a diuretic, discuss the need for potassium supplements with your doctor. Follow Up with your doctor for a repeat blood test within the next week or as advised by our staff. Get Prompt Medical Attention if any of the following occur: -- Increased weakness -- Feeling dizzy -- Irregular heartbeat, extra beats or very fast heart rate -- Fainting spell Chlordiazepoxide Hydrochloride Oral capsule What is this medicine? CHLORDIAZEPOXIDE (klor dye az e POX shanna) is a benzodiazepine. It is used to treat anxiety and alcohol withdrawal. How should I use this medicine? Take this medicine by mouth with a glass of water. Follow the directions on the prescription label. If this medicine upsets your stomach, take it with food or milk. Take your doses at regular intervals. Do not take your medicine more often than directed. If you have been taking this medicine regularly for some time, do not suddenly stop taking it. You must gradually reduce the dose or you may get severe side effects. Ask your doctor or health healthcare corporate account director for advice. Even after you stop taking this medicine it can still affect your body for several days. Talk to your supervisor whipped topping regarding the use of this medicine in children. Special care may be needed. While this drug may be prescribed for children as young as 6 years for selected conditions, precautions do apply. What side effects may I notice from receiving this medicine? Side effects that you should report to your doctor or health healthcare corporate account director as soon as possible: allergic reactions like skin rash, itching or hives, swelling of the face, lips, or tongue confusion, depression feeling faint or lightheaded, falls mood changes, excitability or aggressive behavior muscle cramps problems with balance, talking, walking restlessness tremors unusually weak or tired Side effects that usually do not require medical attention (report to your doctor or health healthcare corporate account director if they continue or are bothersome): change in sex drive or performance constipation drowsiness menstrual changes nausea, vomiting What may interact with this medicine? cimetidine medicines for anxiety or sleeping problems, like alprazolam, lorazepam, or triazolam medicines for depression, mental problems or psychiatric disturbances medicines for HIV infection or AIDS prescription pain medicines rifampin, rifapentine, or rifabutin some medicines for seizures like carbamazepine, phenobarbital, phenytoin, or primidone What if I miss a dose? If you miss a dose, take it as soon as you can. If it is almost time for your next dose, take only that dose. Do not take double or extra doses. Where should I keep my medicine? Keep out of the reach of children. This medicine can be abused. Keep your medicine in a safe place to protect it from theft. Do not share this medicine with anyone. Selling or giving away this medicine is dangerous and against the law. Store at room temperature between 15 and 30 degrees C (59 and 86 degrees F). Throw away any unused medicine after the expiration date. What should I tell my health care provider before I take this medicine? They need to know if you have any of these conditions: an alcohol or drug abuse problem kidney or liver disease suicidal thoughts an unusual or allergic reaction to chlordiazepoxide, other benzodiazepines, foods, dyes, or preservatives or trying to get breast-feeding What should I watch for while using this medicine? Visit your doctor or health healthcare corporate account director for regular checks on your progress. Your body can become dependent on this medicine. Ask your doctor or health healthcare corporate account director if you still need to take it. You may get drowsy or dizzy. Do not drive, use machinery, or do anything that needs mental alertness until you know how this medicine affects you. To reduce the risk of dizzy and fainting spells, do not stand or sit up quickly, especially if you are an older patient. Alcohol may increase dizziness and drowsiness. Avoid alcoholic drinks. Do not treat yourself for coughs, colds or allergies without asking your doctor or health healthcare corporate account director for advice. Some ingredients can increase possible side effects. You have been given the following additional information: Alcohol Intoxication Hypokalemia Chlordiazepoxide Hydrochloride Oral capsule (Electronically signed by Thompson Grace Dr. 04/22/2017 21:56)
--- NOTE | 2017-04-22 21:56 | ED MED RECONCILIATION SUMMARY ---
Patient: HARJINDER DASILVA Medication Reconciliation Report [facility] VisitID: [id number] [address] [place] [address] 61y, F Registration Date/Time: 04/22/2017 Weight: 52.1 kg Height/Length: 62 in. BMI: 21.0 ALLERGIES: Erythromycin The patient's Home Medications are listed below: CONTINUE TAKING THE FOLLOWING MEDICATIONS: Levothyroxine Sodium Oral (125 mcg) 1 tablet, daily The source(s) of the original Home Medication information: patient The following Medications were given to the patient in the Emergency Department: IV NS IV Fluids bolus 0, then 999 mL/hr, administered: 04/22/2017 4:10:00 PM Zofran [IVP] IVP 4 mg, administered: 04/22/2017 4:10:00 PM Potassium Chloride [IVPB] IVPB bolus 0, then 20 meq 50 mL/hr, administered: 04/22/2017 5:08:00 PM Potassium Chloride [PO] PO 20 meq, administered: 04/22/2017 5:10:00 PM magnesium oxide PO 400 mg, administered: 04/22/2017 5:10:00 PM Ativan [PO] PO 0.5 mg, administered: 04/22/2017 7:46:00 PM Zofran ODT [PO] PO 4 mg, administered: 04/22/2017 7:53:00 PM The following Medications were prescribed to the patient: Mag-Ox 400 (available over the counter): take 1 orally daily Dispense fifteen (15). No refills. -- Thompson Grace Dr. Chlordiazepoxide 25 mg: take 1-2 orally every 6 hours as needed for anxiety. Dispense thirty (30). No refill. -- Thompson Grace Dr. Potassium Chloride 20 mEq: take 1 orally every 24 hours - Dispense fifteen (15) No refills. -- Thompson Grace Dr.
== END 2017-04-22 19:59 | disposition home or self-care (01) ==
LOC: ED SRH 15:42
DX: F10.220 Alcohol dependence with intoxication, uncomplicated (principal); E87.6 Hypokalemia; E83.42 Hypomagnesemia; E03.9 Hypothyroidism, unspecified; Z79.899 Other long term (current) drug therapy; F17.210 Nicotine dependence, cigarettes, uncomplicated; Z88.1 Allergy status to other antibiotic agents
CPT/HCPCS: 90004; 90100; 92720; 92760; 92761; 92762; 92763; 92764; 92765; 92766; 92767; 95059